=== PATIENT | female | born 1960 | race Caucasian/White ===

== ENCOUNTER 2025-07-07 14:00 | Outpatient (AMB) | payer BC, SELFPAY ==
--- OUTSIDE RECORDS SUMMARY | 2022-12-24 12:13 | XMS_ITS | Encounter Summary ---
Author Organization [facility] Address [address] [place] [phone] Phone Care Team Providers Care Roller Skate Repairer Name Role Phone Diego Dc MD Primary Care Provid er Encounter Details Date Type Department Care Team ([facility] st Contact Info) Description 12/24/2022 1:13 PM EDT Hospital Encounter [facility] Department of Neurology [address] [place] [address], [address] [place] [address] Gena Garza MD, PhD [address] [place] [id number] [email or web address] Social History Tobacco Use Types Packs/Day Years Used Date Smoking Tobacco: Never Smokeless Tobacco: Never Education Answer Date Recorded Are you interested in more education? Not on danielle e 11/18/2022 Are you concerned about learning? Not on file 11/18/2022 No 11/18/2022 No 11/18/2022 Digital Access Answer Date Recorded No 12/17/2022 No 12/17/2022 Reliable internet access at home? Not on file 12/17/2022 Device with a working camera? 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 2) Multiple clinical events of forgetting what she was doing, or not knowing what she was doing. One of these spells was associated with more frequent bursts of generalized spike-wave discharges around the time of event. Other events showed no epileptiform abnormalities, or only occasional epileptiform abnormalities that did not differ significantly from the background. 3) There were frequent brief arousals during sleep. No seizures were seen. Recording Start: 12/09/2022 4:43:31 PM Recording End: 12/11/2022 4:11:53 PM Exam Duration: 47 h 28 m Technical Details: Twenty-five (25) disposable electrodes were applied according to the standard 10-20 international measurement and placement protocol in person by an maintenance person for the purposes of recording long-term video EEG: (19) cephalic, (2) T1/T2 sub-temporal, (1) ground, (1) system reference, and (2) ECG. Data was recorded on a 24-channel Everpay EEG recording device with a sampling rate of 200 samples per second/per channel, at impedance levels less than 10 K Ohms. Once the exam was completed, the recording was halted, electrodes carefully removed, and data transferred. 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 Medications: lamotrigine Exam Details: The resting background was continuous and symmetric. Awake at best, there was a 40 uV, 10-11Hz posterior dominant rhythm with excellent anterior-posterior organization. Lambda waves were seen. Drowsiness was characterized by slow roving eye movements, attenuation of the posterior rhythm, a reduction in eye blink artifact, and diffuse slowing. Vertex waves and POSTS were seen. Stage 2 sleep was characterized by sleep spindles and K complexes. REM sleep was characterized by rapid phasic eye movements and sawtooth waves. There were frequent brief arousals during sleep. There were occasional, 1-7 second bursts of 3-4Hz generalized spike and polyspike-wave discharges. Often these were poorly formed. These were seen in both awake and asleep states, but most frequent during periods of transition from awake to asleep. These were also seen more frequently on the morning of the second day of recording. No seizures were seen. Patient events: Multiple events of forgot what I was doing or don't know what I'm doing were captured. These are described in more detail in the table below. Date/Time Type Typical Diary note Clinical note EEG description 12/09/2022 5:56:22 PM Diary Undetermined E1 no alarm button pressed, listed in diary as forgot to do something, walked away without drink no video Awake, no significant changes, muscle artifact noted. No epileptiform abnormalities seen. 12/09/2022 8:17:17 PM Diary Undetermined E2, no alarm pressed, listed in diary as sinus headache no video Awake, no significant changes, muscle artifact noted. No epileptiform abnormalities seen. 12/10/2022 9:37:13 AM Diary Yes E3 1 alarm is pressed 1 time, listed in diary as completely forgot what I was doing no video There were multiple frequent but brief (2-5 second) bursts of generalized spike wave discharges around the time of button press. Note that the spike-wave discharges were much more frequent during this period compared to background. 12/10/2022 11:41:45 AM Diary Undetermined E4 alarm pressed 1 time, no diary entry no video Awake, there was 1 brief (2-second) burst of generalized spike wave discharges, though this was not significantly different compared to background. 12/11/2022 11:07:13 AM Diary Yes E5 alarm pressed 1 time, listed in diary as don't know what I'm doing no video Awake, no significant changes in background. No epileptiform abnormalities seen. 12/11/2022 11:14:23 AM Diary Yes E6, alarm pressed 1 time, listed in diary as dizzy and out of body no video Awake, there were 2 brief (3-5 second) bursts of generalized spike wave discharges, though these occurred in the minute after the patient pushed the button, and were not not necessarily significantly different from background. EEG Clips 12/10/2022 8:42:54 AM generalized spike and wave discharges EKG: No significant dysrhythmia Gena Garza MD PhD [facility] Epilepsy Service Narrative 01/14/2023 8:38 PM EDT Table formatting from the original result was not included. Images from the original result were not included. 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 It is not the complete legal health record.[facility]
--- OUTSIDE RECORDS SUMMARY | 2022-12-24 12:13 | XMS_ITS | Encounter Summary ---
Author Organization [facility] Address [address] [place] [phone] Phone Care Team Providers Care Shook Machine Operator Name Role Phone Diego Dc MD Primary Care Provid er Encounter Details Date Type Department Care Team ([facility] st Contact Info) Description 12/24/2022 1:13 PM EDT Hospital Encounter [facility] Department of Neurology [address] [place] [address], [address] [place] [address] Gena Garza MD, PhD [address] [place] [phone] [email or web address] Social History Tobacco Use Types Packs/Day [...] Diagnosis Comments OUTSIDE EEG (WITH INTERPRETATION) Routine 12/09/2022 3:38 PM EDT 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 No seizures were seen. 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 Medications: Lamotrigine Exam Details: The resting background was continuous and symmetric. Awake at best, there was a 40 uV, 10-11Hz posterior dominant rhythm with excellent anterior-posterior organization. Drowsiness and sleep were not captured during this recording. There was a single 3.5-second burst of 3-4Hz generalized spike wave discharges. No seizures were seen. EKG: No significant dysrhythmia Gena Garza MD PhD 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 It is not the complete legal health record.[facility]
--- OUTSIDE RECORDS SUMMARY | 2024-05-21 09:30 | XMS_ITS ---
Author Organization [facility] Address [address] [facility] [place] [address] Care Team Providers Care Icing Coater Name Role Phone Diego Dc MD Primary Care Provider Vanna Real Unavailable [phone] Allergies Allergen (clinical drug ingredient) Drug/Non Drug Allergy documented on EMR Reaction Allergy Type Onset Date Status amoxicillin / clavulanate Augmentin Unknown Drug Allergy Active codeine Codeine Unknown Drug Allergy Active REASON FOR VISIT Last Visit PCP 12/2023 Medications Medication SIG (Take, Route, Frequency, Duration) Notes Start Date End Date Status Night Splint AFO - L1930 1 wear at rest; Duration: 30 days Active LaMICtal Active metFORMIN HCl 500 MG 1 tablet with a giancarlo l Orally Once a day Active Social History Tobacco Use: Social History Observation Description Date Details (start date - stop date) Never Smoker NA - NA Tobacco Use/Smoking Question Answer Notes Are you a: nonsmoker Additional Findings: Tobacco Non-User Current no n-smoker Alcohol Screen Question Answer Notes Did you have a drink containing alcohol in the p ast year? Yes Points 0 Interpretation Negative Tobacco use other than smoking: Question Answer Notes Are you an other tobacco user? No Encounters Encounter Location Date Provider Diagnosis [address] [place] [address] 05/21/2024 Vanna Clay Plan Of Treatment No Information Progress Notes * Mackenzie SWEENEYOB:[birth year] (64 yo F)Acc No.[id number]:05/21/2024 Patient: Sunni PATIÑO Provider: Alicia Clay DPM :1960 A ge:63 Y S ex:Female Date:05/21/2024 Address:[id number] Pcp:Diego Dc MD Subjective: * Chief Complaints: * 1 . Last Visit PCP 12/2023. * ROS: G eneral/Constitutional: Nausea d enies. V omiting d enies. H alla Thirst a dmits. L oss appetite d enies. C hills d enies. F atigue d enies.?Fever d enies. N ight Sweats d enies. U nexplained weight loss d enies. U nexplained weight gain d enies. H EENTM: Dentures d enies. D izziness d enies. G lasses/contacts a dmits. R etinopathy d enies. B lurred/double vision d enies. T MJ?denies. D ischarge/drainage d enies. I mplants d enies. S ore throat d enies. D ental implants d enies. H freddie of hearing d enies. D ifficulty chewing/swallowing/speaking d enies. N ose bleeds d enies. S ore mouth d enies. ? R espiratory: On Oxygen d enies. P neumonia/pleurisy d enies.?Bronchitis d enies. E mphysema d enies. C oughing d enies. C ough blood?denies. S hortness of breath d enies. W heezing d enies. C ardiovascular: Pacemaker d enies. M IN SCHOOL SUSPENSION AIDE d enies. W PW d enies. C HF d enies. H eart attack d enies. S eptal defect d enies. R apid beat d enies. C hest pain d enies. A trial Fib. d enies. M urmur/Palpitations d enies. G astrointestinal: Hemorrhoids d enies. S tomach/Abdominal pain d enies. D ark blood stool d enies. I rritable bowel a dmits. C onstipation a dmits. D iarrhea a dmits. H ematology: Swelling d enies. C lots d enies. V aricose Veins d enies. B ruising d enies. B leeding problem d enies. G enitourinary: Blood urine d enies. F requent/Painfu/urination/bladder control d enies. K idney stones d enies. I nfection (UTI) d enies. N ephropathy d enies. s ex trans dis (STD) d enies. P rostate d enies. M usculoskeletal: Hammertoes d enies. B unions d enies. B ack Pain a dmits. M uscle Cramps/ Resting a dmits. M uscle cramps / walking d enies.?Generalized aches and pains a dmits. W eakness d enies. I nteg.: Fraga d enies. S cars d enies. C orns/calluses?denies. I ngrown nails d enies. P ainful nails a dmits. O pen Sores d enies. R ashes d enies. N eurologic: Difficulty sleeping d enies. B rain disorder a dmits. N umbness d enies. B alance trouble d enies. C onfusion d enies. F ainting/blackouts d enies. T ingling d enies. T remors d enies. * Medical History: A nxiety, Osteoarthritis, Back,Hip,and Knee pain, Covid-19, Depression, Diabetic, Epilepsy, Fibromyalgia, Gall bladder problems, Sciatica, Sinusitis, Thyroid, Chicken pox, Joint implants/screws. * Surgical History: l eft knee replacement 09/2021, right knee replacement 05/2022, spinal stimulator 2014. * Family History: M other: alive, diagnosed with Family history of arthritis, Diabetic - NIDDM, Unspecified heart disease, Other specified conditions influencing health status. F ather: alive, diagnosed with Unspecified heart disease. S pouse: alive. M aternal Grand Mother: diagnosed with Diabetic - NIDDM. * Social History: T obacco Use: T obacco Use/Smoking A re you a: n onsmoker A dditional Findings: Tobacco Non-User C urrent non-smoker Tobacco use other than smoking A re you an other tobacco user? N o D rugs/Alcohol: D rugs H ave you used drugs other than those for medical reasons in the past 12 months? N o Alcohol Screen D id you have a drink containing alcohol in the past year? Y es P oints 0 I nterpretation N egative M iscellaneous: C affeine: yes. Children: yes, 3. Exercise: yes, walking, gardening/yard work, cooking. Marital status: . Occupation: [employer]. * Medications: T akinananda LaMICtal , Taking metFORMIN HCl 500 MG Tablet 1 tablet with a meal Orally Once a day , Taking Night Splint AFO - L1930 1 wear at rest , Medication List reviewed and reconciled with the patient * Allergies: A Devin vale. Objective: * Vitals: Assessment: Plan: * Treatment: * Images: * The named appointment provid er may or may not be the originator of this progress note, and it is not deemed complete until electronically signed by the appointment provider. Sign off status: Pending * Provider: Alicia Clay DPM Date: Generated for Matthew flores/Polo/Jessica on: 2024 08:24 PM EST
--- OUTSIDE RECORDS SUMMARY | 2024-06-11 05:30 | XMS_ITS ---
Author Organization [facility] Address [address] [place] [address] Care Team Providers Care Banana Carrier Name Role Phone Diego Dc MD Primary Care Provider Unava ilVanna Pastor [phone] REASON FOR VISIT seen sooner Encounters Encounter Location Date Provider Diagnosis [address] [place] [address] 06/11/2024 Vanna Clay Plan Of Treatment No Information Progress Notes * Mackenzie SWEENEYOB:[birth year] (64 yo F)Acc No.[id number]:06/11/2024 Patient: Sunni PATIÑO Provider: Marlene Clay DPM :1960 A ge:63 Y S ex:Female Date:06/11/2024 [address] [place] [place] Pcp:Diego Dc MD Subjective: * Chief Complaints: * 1 . Seen sooner. * Medical History: Objective: * Vitals: Assessment: Plan: * Treatment: * Images: * The named appointment provid er may or may not be the originator of this progress note, and it is not deemed complete until electronically signed by the appointment provider. Sign off status: Pending * Provider: Marlene Clay DPM Date: 08/11/2023 Generated for Ali sandra/Polo/eTransmitting on: 2024 08:24 PM EST
--- OUTSIDE RECORDS SUMMARY | 2025-03-04 09:45 | XMS_ITS ---
Author Organization [facility] Address [address] [facility] [address] Care Team Providers Care Corporate Compliance Officer Name Role Phone Diego Dc MD Primary Care Provider Unava ilable Vanna Clay Unavailable [phone] Encounters Encounter Location Date Provider Diagnosis [address] [place] [address] 03/04/2025 Vanna Clay Plan Of Treatment No Information Progress Notes * Mackenzie SWEENEYOB:[birth year] (64 yo F)Acc No.[id number]:03/04/2025 Progress Note Patient: Sunni PATIÑO Provider: Marlene Clay DPM :1960 A ge:64 Y S ex:Female Date:03/04/2025 Address[address] [place] Pcp:Diego Dc MD Subjective: * Chief Complaints: * * Medical History: Objective: * Vitals: Assessment: Plan: * Treatment: * Images: * The named appointment provid er may or may not be the originator of this progress note, and it is not deemed complete until electronically signed by the appointment provider. Sign off status: Pending * Provider: Marlene Clay DPM Date: 0 03/04/2025 Generated for Printi ng/Faxing/eTransmitting on: 1 2024 08:25 PM EST
[2025-07-07 14:49] VITALS: BMI 36.6
--- NOTE | 2025-07-07 14:49 | A.PHYSOV_ITS ---
Vital Signs 07/07/25 14:49 Height 5 ft 2 in Weight 200 lb BMI 36.6 Intake Visit Reasons: NPV ATI Ref-LBP Intake Note: Patient is a 64 year old female here today for a new patient office visit. Patient has been referred for lower back pain. Cinder Crane Operator Required: No Allergies amoxicillin (From Augmentin) Allergy (Unknown, Verified 07/07/25 14:52) Unknown clavulanic acid (From Augmentin) Allergy (Unknown, Verified 07/07/25 14:52) Unknown codeine Allergy (Unknown, Verified 07/07/25 14:52) Unknown HPI Comments Details: History of Present Illness The patient is a 64 year old female presenting for evaluation of worsening chronic low back pain with sciatica. She reports the onset of sciatic issues began in 2012 after the of her last child. While the symptoms were previously intermittent, they have recently become horrible, with a current pain level of 7-8/10. The patient has a spinal cord stimulator which was placed approximately 13 years ago in [place]. The stimulator battery was recently replaced, and the new device is MRI-compatible. She notes the stimulator helps, stating her pain is significantly worse when the battery dies, but its current efficacy is limited. She recalls receiving injections in her back prior to the stimulator placement. Past medical history is significant for bilateral total knee arthroplasties. She has had a prior CAT scan which she states showed a bad disc, but she has not had an MRI due to the old stimulator. She recently lost 30 pounds but feels her pain has worsened since the weight loss. 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 Patient did have CT scan of her lumbar spine ordered prior to having the battery changed in her spinal cord stimulator. This confirm moderate degenerative disc disease but is not a good way to look at the spinal cord, nerve root impingement or disc issues. Patient is requesting MRI of the lumbar spine. I reviewed the referring provider's no prior to consultation. Pain Description - Onset: The patient reports her sciatic issue began in 2012 after childbirth. - Location: Pain is primarily on the right side, starting in the lower back/buttock area. - Radiation: The pain radiates down the right leg, sometimes to the side or front of the leg. - Severity: Current pain is rated as a 7-8 out of 10. - Quality: She describes a sharp pain in her right buttock. - Exacerbating Factors: Pain is worsened by leaning backward and bending forward. - Associated Symptoms: She reports occasional numbness and a tingling sensation in the right leg that is different from the sensation produced by her spinal cord stimulator. Results - Imaging: The patient reports a prior CAT scan of her back showed a really bad disc. Review of Systems Narrative Review of Systems - Musculoskeletal: Reports chronic low back pain and right leg pain. - Neurological: Reports right-sided sciatica with pain radiating down her leg, accompanied by occasional numbness and tingling in the right leg. - Psychiatric: Reports feeling like crying due to pain severity. Denies claustrophobia. Physical Exam Exam Exam: Physical Exam - General: Patient appeared to be in distress from pain. - Musculoskeletal: Lumbar spine extension reproduces pain radiating down the leg. Lumbar spine flexion exacerbates back, hip, and leg pain. - Neurological: Straight leg raise test is positive on the right, reproducing back and buttock pain; the test is negative on the left. Motor strength is grossly 5/5 for ankle dorsiflexion and plantarflexion bilaterally. Sensation to light touch is intact in bilateral thighs. Patellar reflexes were assessed, with findings not specified. Vital Signs: BMI result Body Mass Index 36.6 Assessment & Plan Assessment & Plan (1) Lumbar radiculopathy: Code(s): M54.16 - Radiculopathy, lumbar region Category: Medical (2) Lumbar spondylosis: Code(s): M47.816 - Spondylosis without myelopathy or radiculopathy, lumbar region Category: Medical Plan Pain Management - Analgesia: The patient is using a spinal cord stimulator, which she finds partially effective. She reports her pain is a 7-8/10 currently and notes she is unable to move when the stimulator is not functioning. She is not currently taking oral pain medications. - Affect: She reports being very distressed by the pain, stating she feels like crying. - Activities of Daily Living: The pain is severe and has been ongoing since 2012, impacting her function. - Adverse Effects: She has not taken any pain medications for a while and did not report any adverse effects. She notes that cyclobenzaprine did not work for her in the past. - Aberrant Drug Related Behaviors: No aberrant drug-related behaviors were discussed. Plan Patient was informed and verbally consented to the use of an ambient scribe for clinic note documentation during this visit. 1. Chronic Low Back Pain With Right-Sided Sciatica The patient presents with worsening chronic low back pain and right-sided sciatica, which has been present since 2012. Her symptoms are significant despite the presence of a spinal cord stimulator. A prior CAT scan was insufficient for a complete evaluation of nerve or disc pathology. An MRI of the lumbar spine is necessary for a more detailed assessment, now that her new stimulator battery is MRI-compatible. An order for an MRI of the lumbar spine will be placed for the patient's preferred facility, [facility]. For symptomatic relief, tizanidine 4 mg will be prescribed for up to three times a day as needed. Ibuprofen 800 mg will also be prescribed for up to three times a day as needed with food. The patient will follow up in the office after the MRI is completed to review the results and discuss further treatment options. Discussion Notes I explained to the patient that while her previous CAT scan showed some issues, an MRI of her lumbar spine is the superior test to evaluate for nerve impingement, disc pathology, or spinal cord issues, which are likely contributing to her symptoms. Given her new spinal cord stimulator is MRI- compatible, I recommended proceeding with the imaging. I will order the MRI at her preferred location and instructed her to call our office if she has not heard from us within a week of the scan to ensure we obtain the report. For symptomatic management, I prescribed tizanidine 4 mg for muscle spasms, as she reported cyclobenzaprine was ineffective. I also prescribed ibuprofen 800 mg for pain and inflammation, advising her to take it with food and use both medications only as needed. We discussed her recent weight loss, and I encou raged her to continue, explaining that while the damage causing her chronic pain may already be done, maintaining a healthy weight is beneficial for her future health. We will have her return for a follow-up appointment after the MRI results are available to discuss a definitive treatment plan. Patient Instructions - An MRI of your lower back will be ordered. Please proceed with scheduling this scan at [facility], as you requested. - Remember to bring the card for your spinal cord stimulator to your MRI appointment. - If you have not heard from our office one week after your MRI is completed, please call us so we can track down the results. - A prescription for Tizanidine 4 mg has been sent to your pharmacy. You may take one pill up to three times a day as needed for muscle spasms. This medication may cause drowsiness, so take the first dose when you are home and do not have to drive. - A prescription for Ibuprofen 800 mg has also been sent. You may take one pill up to three times a day as needed for pain. Be sure to take this with food. - On days when you are feeling well, you do not need to take either of these medications. - Continue your efforts with weight loss, as it is beneficial for your long-term health. - We will have you return for a follow-up visit after your MRI to review the results and discuss the next steps. Orders: Orders MR lumbar spine wo con Today M51.16 - Intervertebral disc disorders with radiculopathy, lumbar region Medications: New tizanidine 4 mg PO TID PRN 90 caps 6RF muscle spasticity 30 days M47.816 - Spondylosis without myelopathy or radiculopathy, lumbar region, M54.16 - Radiculopathy, lumbar region ibuprofen 800 mg PO TID 90 tabs 6RF 30 days M47.816 - Spondylosis without myelopathy or radiculopathy, lumbar region, M54.16 - Radiculopathy, lumbar region Coding Level of Care Code Tele New Pt Level 4 (54770) Diagnoses Lumbar radiculopathy M54.16 Lumbar spondylosis M47.816
--- OUTSIDE RECORDS SUMMARY | 2025-07-07 20:25 | XMS_ITS | Encounter Summary ---
Author Organization Nichole Delgado [facility] Address [address] [place] [address] Care Team Providers Care Loading Unit Operator Crimping Name Role Phone Diego Dc MD Primary Care Provider +1- [phone] Encounter Details Date Type Department Care Team (Late st Contact Info) Description 07/01/2013 Clinical Conversion Encounter GENERAL CONVERSION Marsha Garcias RN Social History Tobacco Use Types Packs/Day Years Used Date Smoking Tobacco: Never Comments Unknown Sex and Gender Information Value Date Recorded Sex Assigned at Not on file Legal Sex Female 4:21 PM EST Gender Identity Not on file Sexual Orientation Not on file documented as of this encounter Miscellaneous Notes * Telephone Encounter - Marsha Garcias RN - 09/10/2014 9:35 AM EST [id number],LAURIE [facility] POSTOP TELEPHONE NOTE NEUROSURGERY 07/01/2013 Name: SUNNI SWEENEY #: [id number] : 1960 Visit ID: [id number] This is a telephone dictation made from a diary received on 07/01/2013 from Sunni Sweeney. DIAGNOSIS: Facet syndrome. PROCEDURE: Bilateral lumbar medial branch block, L3 through S1. PROCEDURE DATE: 06/28/2013. PROCEDURIST: Yomaira Hartley M.D. PROCEDURE LOCATION: [facility]. PROCEDURE RESULTS: Pre procedure pain: number 6 at rest, 8 with standing and walking. Post procedure: the patient was instructed to keep a pain diary, refrain from using pain medication and keep herself active. At 3:30 p.m., immediately postprocedure, pain number 2; 4:00 p.m., pain number 2; 4:30 p.m. and 5:00 p.m., pain number 3; 5:30 p.m. and 6:00 p.m., pain number 4; 6:30 p.m. and 7:00 p.m., pain number 5; 7:30 p.m., pain number 6; 8:00 p.m., pain number 9. The patient did some riding in the car, walking, and some food shopping. She went out to a restaurant to eat and did decorating her home. Percentage of pain relief: greater than or equal to 50% during the first 3 hours of the diary. PLAN: The patient is to return on the for her second lumbar medial branch block. Marsha Garcias RN [phone] AC:bernie J: [id number] / [id number] CC: THIS DOCUMENT WAS ELECTRONICALLY AUTHENTICATED BY Marsha Garcias RN ON 07/18/2013 09:37:52 documented in this encounter Plan of Treatment Not on file documented as of this encounter Visit Diagnoses Not on filedocumented in this encounter Care Teams Loading Unit Operator Crimping Relationship Specialty Start Date End Date Diego Dc MD PCP - General 06/02/14 documented as of this encounter
--- OUTSIDE RECORDS SUMMARY | 2025-07-07 20:25 | XMS_ITS | Encounter Summary ---
Author Organization Nichole Delgado [facility] Address [address] [place] [address] Care Team Providers Care Water Maintenance Supervisor Name Role Phone Diego Dc MD Primary Care Provider +1- [phone] Encounter Details Date Type Department Care Team (Late st Contact Info) Description 10/05/2013 Clinical Conversion Encounter BOB NEUROSURGERY [address] [place] [address] Cesar Ricardo Jr., DO [address] [place] [address] Social History Tobacco Use Types Packs/Day Years Used Date Smoking Tobacco: Never Comments Unknown Sex and Gender Information Value Date Recorded Sex Assigned at Not on file Legal Sex Female 4:21 PM EST Gender Identity Not on file Sexual Orientation Not on file documented as of this encounter Miscellaneous Notes * Op Note - Cesar Ricardo Jr., DO - 09/17/2014 10:10 PM EST [id number],LAURIE [facility] [place] [place] OPERATIVE REPORT NAME: SUNNI SWEENEY DATE: 10/05/2013 #: [id number] : 1960 VISIT ID: [id number] SECOND VISIT ID: PHYSICIAN: Cesar Ricardo DO CASE MANAGEMENT DIRECTOR: Radha Esqueda RN PRE-OP DIAGNOSIS: Lumbar Radiculopathy (724.4) Trochanteric Bursitis POST-OP DIAGNOSIS: Lumbar Radiculopathy (724.4) Trochanteric Bursitis PROCEDURE: Left L4-5 (82436) Transforaminal Epidural Steroid Injection, left trochanteric bursa injection, under fluoroscopic guidance. ANESTHESIA: Local anesthesia. INDICATIONS: Low back and left leg pain. Left lateral hip pain. She states MELISSA recreated all her typical pain pattern which is good prognostic sign. OPERATIVE PROCEDURE: The benefits, alternatives, and risks of the procedure including but not limited to bleeding, infection, nerve damage, and worsening of the pain were discussed with the patient. After all patient concerns were addressed, the patient signed an informed consent. The patient was placed prone and automated blood pressure cuff and pulse oximeter applied. The skin entry point(s) was thoroughly cleaned with Chlorhexidine and draped in usual sterile fashion. The skin and subcutaneous tissue was anesthetized with 1-mL of Lidocaine 1%. A 22-gauge, 7.0-inch spinal needle was inserted towards the six o'clock position of the respective pedicle(s) into the left L4-5 foramen using fluoroscopic AP and oblique views. There was negative aspiration for heme and CSF. Injection of 1-cc of Omnipaque 240 showed appropriate intra epidural spread pattern without intravascular uptake in live fluoroscopic AP view. A total mixture of Kenalog 80-mg and 1-cc of Lidocaine 1% was injected. A 22-gauge 5.0-inch needle was used to inject the left trochanteric bursa under fluoroscopic AP view. A total of Kenalog 40mg and 3cc of 1% Lidocaine injected. Postprocedure instruction was given as documented in nursing records. After careful observation, the patient was determined to be safe and was discharged from same day holding area. We will follow up with the patient by phone in one week to assess outcome and to direct medical care accordingly. ESTIMATED BLOOD LOSS: None. SPECIMENS: None. COMPLICATIONS: None. Cesar Ricardo Jr, MD [phone] JPS: J: [id number] CC: Diego Dc MD, <Primary Care Physician> THIS DOCUMENT WAS ELECTRONICALLY AUTHENTICATED BY Cesar Ricardo Jr, MD ON 10/05/2013 10:39:23 SUNNI SWEENEY # [id number] documented in this encounter Plan of Treatment Not on file documented as of this encounter Visit Diagnoses Not on filedocumented in this encounter Care Teams Water Maintenance Supervisor Relationship Specialty Start Date End Date Diego Dc MD PCP - General 06/02/14 documented as of this encounter
--- OUTSIDE RECORDS SUMMARY | 2025-07-07 20:25 | XMS_ITS | Encounter Summary ---
Author Organization Nichole Delgado [facility] Address [address] [place] [address] Care Team Providers Care User Support Analyst Supervisor Name Role Phone Diego Dc MD Primary Care Provider +1- [phone] Encounter Details Date Type Department Care Team (Late st Contact Info) Description 10/17/2013 Clinical Conversion Encounter GENERAL CONVERSION Marsha Garcias [...] Telephone Encounter - Marsha Garcias RN - 09/18/2014 5:42 AM EST [id number],LAURIE [facility] TELEPHONE NOTE NEUROSURGERY 10/22/2013 Name: SUNNI SWEENEY #: [id number] : 1960 Visit ID: [id number] DIAGNOSES: 1. Lumbar radiculopathy. 2. Trochanteric bursitis. PROCEDURES: Left-sided lumbar transforaminal epidural steroid injection at L4-5 and left-sided trochanteric bursa injection. PROCEDURE DATE: 10/05/2013. PROCEDURIST: Cesar Ricardo M.D. PROCEDURE LOCATION: [facility]. PROCEDURE RESULTS: Percentage of overall improvement: only 40%, and she states that the symptoms come and go. Some days she does have a lot of pain and other days it is minimal. The patient states on the day of the procedure for the first couple of hours after the procedure, she really had no symptoms, that she felt good, and then the numbing medicine seemed to wear off and her symptoms did return. Numbness and weakness in the legs: The patient does state that her leg at times does feel weak. It feels hot. It is a sensation that starts in the hip and does radiate laterally down the leg into the calf. Injection site healed. Bowel and bladder accidents denied. PLAN: The patient would like to contact Jemal Alfonso NP, to discuss further her hip symptoms. She is also now starting to experience right hip symptoms as well over the past week. She may well need to have x-rays and follow up with Orthopedics according to Jemal Alfonso's last note from September 24. Also, she wants to discuss with him further her leg symptoms and how she should best proceed, whether she needs a clinic visit with him. The patient was satisfied with our discussion. She does have our contact information in the nurse's office if she has any further questions or concerns. Marsha Garcias RN [phone] AC:bernie J: [id number] / [id number] CC: MD Cesar Navarrete Jr, MD David Melzack, RN [employer]CHIT[employer] THIS DOCUMENT WAS ELECTRONICALLY AUTHENTICATED BY Marsha Garcias RN ON 10/28/2013 13:48:08 * Telephone Encounter - Marsha Garcias RN - 09/17/2014 10:10 PM EST [id number] [facility] POSTOP TELEPHONE NOTE NEUROSURGERY 10/17/2013 Name: SUNNI SWEENEY #: [id number] : 1960 Visit ID: [id number] DIAGNOSES: Lumbar radiculopathy, trochanteric bursitis. PROCEDURE: Left-sided greater trochanteric bursa injection and a left-sided lumbar transforaminal epidural steroid injection at L4-L5. PROCEDURE DATE: 10/05/2013. PROCEDURIST: Cesar Ricardo M.D. PROCEDURE LOCATION: [facility]. PROCEDURE RESULTS: The patient called and left a message on the nursing line stating that she still had some pain, but she was about 40% improved in her symptoms, specifically at the L4-L5 level. I have attempted contacting her today; however, she was not available. I did emphasize the need to follow through on a call, so that we can set up a plan. Please give us a call and maybe provide us a better time when we can make contact and we would try to accommodate that. I did leave my contact information. Marsha Garcias RN [phone] AC:bernie J: [id number] / [id number] CC: THIS DOCUMENT WAS ELECTRONICALLY AUTHENTICATED BY Marsha Garcias RN ON 10/28/2013 13:28:27 documented in this encounter Plan of Treatment Not on file documented as of this encounter Visit Diagnoses Not on filedocumented in this encounter Care Teams User Support Analyst Supervisor Relationship Specialty Start Date End Date Diego Dc MD PCP - General 06/02/14 documented as of this encounter
--- OUTSIDE RECORDS SUMMARY | 2025-07-07 20:25 | XMS_ITS | Encounter Summary ---
Author Organization [facility] Address [address] [place] [address] Phone Care Team Providers Care Blade Changer Name Role Phone Diego Dc MD Primary Care Provid er Encounter Details Date Type Department Care Team (Late st Contact Info) Description 11/17/2023 Transcribe Orders Virtual Department [address] [place] [address] Gunjan Tavares, FIELD SCOUT [address] [place] [address] Social History Tobacco Use Types Packs/Day Years [...] on filedocumented in this encounter Care Teams Blade Changer Relationship Specialty Start Date End Date Diego Dc MD [address] [place] [address] PCP - General Pediatrics 03/12/19 documented as of this encounter Additional Source Comments The information contained in this document represents components of the legal health record. It is not the complete legal health record.[facility]
--- OUTSIDE RECORDS SUMMARY | 2025-07-07 20:25 | XMS_ITS | Encounter Summary ---
Author Organization [facility] Address [address] [place] [address] Phone Care Team Providers Care Flotation Tender Name Role Phone Diego Dc MD Primary Care Provid er Encounter Details Date Type Department Care Team (Late st Contact Info) Description 05/14/2019 Procedure [facility] Imaging [address] [place] [address] Social History Tobacco Use Types Packs/Day Years Used Date Smoking Tobacco: Never Assessed Comments Unknown Sex and Gender Information Value [...] on filedocumented in this encounter Care Teams Flotation Tender Relationship Specialty Start Date End Date Diego Dc MD [address] [place] [address] PCP - General Pediatrics 03/12/19 documented as of this encounter Additional Source Comments The information contained in this document represents components of the legal health record. It is not the complete legal health record.[facility]
--- OUTSIDE RECORDS SUMMARY | 2025-07-07 20:25 | XMS_ITS | Encounter Summary ---
Author Organization [facility] Address [address] [place] [address] Phone Care Team Providers Care Topline Beading Machine Tender Name Role Phone Diego Dc MD Primary Care Provid er Reason for Referral * Consultation (Elective) - Closed Specialty Diagnoses / Procedures Referred By Contac t Referred To Contact Neurology Diagnoses Cognitive dysfunction System, Provider Not In, [facility] [employer] [address] Phone: tel: Referral ID Status Reason Start Date Expiration Date Visits Re quested Visits Authorized [id number] Closed 04/11/2019 04/11/2020 1 1 Encounter Details Date Type Department Care Team (Late st Contact Info) Description 04/11/2019 Transcribe Orders [facility] Department of Neurology [address] [place] [address], [address], [address] [place] [address] System, Provider Not In, [facility] [employer] [address] [place] [address] Cognitive dysfunction (Primary Dx) Social History Tobacco Use Types Packs/Day Years Used Date Smoking Tobacco: Never Assessed Comments Unknown Sex and Gender Information Value Date Recorded Sex Assigned at Female 03/12/2019 2:05 PM EDT Legal Sex Female 9:45 PM EDT Gender Identity Female 03/12/2019 2:05 PM EDT Sexual Orientation Straight 03/12/2019 2: 05 PM EDT documented as of this encounter Plan of Treatment Scheduled Referrals Name Type Priority Associated Diagnoses Orde r Schedule Ambulatory referral to [facility] Neurology Outpatient Referral Routine Cognitive dysfunction Ordered: 04/11/2019 documented as of this encounter Visit Diagnoses Diagnosis Cognitive dysfunction- Primary Unspecified persistent mental disorders due to conditions classified elsewhere documented in this encounter Care Teams Topline Beading Machine Tender Relationship Specialty Start Date End Date Diego Dc MD [address] [place] [phone] PCP - General Pediatrics 03/12/19 documented as of this encounter Additional Source Comments The information contained in this document represents components of the legal health record. It is not the complete legal health record.[facility]
--- OUTSIDE RECORDS SUMMARY | 2025-07-07 20:25 | XMS_ITS | Encounter Summary ---
Author Organization Nichole Delgado [facility] Address [address] [place] [address] Care Team Providers Care Public Health Technician Name Role Phone Diego Dc MD Primary Care Provider +1- [phone] Encounter Details Date Type Department Care Team (Late st Contact Info) Description 07/09/2013 Clinical Conversion Encounter GENERAL CONVERSION Marsha Garcias [...] Garcias RN - 09/10/2014 9:35 AM EST [id number],LAURIE [facility] POSTOP TELEPHONE NOTE NEUROSURGERY 07/09/2013 Name: SUNNI SWEENEY #: [id number] : 1960 Visit ID: [id number] DIAGNOSIS: Facet syndrome. PROCEDURE: Bilateral lumbar medial branch block, L3 through S1. PROCEDURE DATE: 07/05/2013 PROCEDURIST: Yomaira Hartley MD PROCEDURE LOCATION: [facility]. PROCEDURE RESULTS: The patient's pre-procedure pain number: at rest 5 with activity 9-10. Post-procedure: the patient was instructed to keep a pain diary, refrain from using pain medication and keep herself active. She did quite a bit of shopping, riding in the car, walking around at a rest stop on the way home, prepared dinner and did more shopping. Her pain number initially post-procedure at 2:45 was 1. It remained at 1 until 4:00 p.m. It was 2, at 4:30; pain number 3, at 5:00 p.m.; pain number 4, between 5:30 and 6:30; pain number 5; and at 7 p.m., pain number 6. Percentage of pain relief equal to or greater than 50% relief: yes. Injection site healed. PLAN: The patient will return on July 12 for her bilateral radiofrequency denervation. She has been provided a sedative. The patient does have our contact information in the nurse's office if she has any further questions or concerns. Marsha Garcias RN [phone] AC:MARKIE J: [id number] / [id number] CC: THIS DOCUMENT WAS ELECTRONICALLY AUTHENTICATED BY Marsha Garcias RN ON 07/18/2013 10:55:09 documented in this encounter Plan of Treatment Not on file documented as of this encounter Visit Diagnoses Not on filedocumented in this encounter Care Teams Public Health Technician Relationship Specialty Start Date End Date Diego Dc MD PCP - General 06/02/14 documented as of this encounter
--- OUTSIDE RECORDS SUMMARY | 2025-07-07 20:25 | XMS_ITS | Patient Health Record ---
Author Organization [facility] Address [address] [place] [address] Care Team Providers Care Security Guard Name Role Phone Diego Dc MD Primary Care Provider Unava ilable Black, Vanna Unavailable [phone] Allergies Allergen (clinical drug ingredient) Drug/Non Drug Allergy documented on EMR Reaction Allergy Type Onset Date Status amoxicillin / clavulanate Augmentin Unknown Drug Allergy Active codeine Codeine Unknown Drug Allergy Active Reason For Referral No Information Medications Medication SIG (Take, Route, Frequency, Duration) Notes Start Date End Date Status metFORMIN HCl 500 MG 1 tablet with a giancarlo l Orally Once a day Active LaMICtal Active Night Splint AFO - L1930 1 wear at rest; Duration: 30 days Active Immunizations Vaccine Route Administration Date Status Comme nts Influenza Unknown 05/11/2023 Administered Social History Tobacco Use: Social History Observation Description Date Details (start date - stop date) Never Smoker NA - NA Tobacco use other than smoking: Question Answer Notes Are you an other tobacco user? No Tobacco Control (Standard) Question Answer Notes Tobacco use: Nonsmoker Additional Findings: Tobacco non-user Current no nsmoker AUDIT-C (Standard) Question Answer Notes Did you have a drink containing alcohol in the p ast year? No Points 0 Interpretation Negative Problems Problem Type SNOMED Code ICD Code Onset Dates Problem Status W/U Status Risk Notes Problem Acquired hammer toe of right foot (401894186562649 5) Other hammer toe(s) (acquired), right foot (M20.41) Active confirmed Decision for Surgery (4),Resistant to previous conservative treatment Problem Acquired hammer toe of left foot (573320169750666 3) Other hammer toe(s) (acquired), left foot (M20.42) Active confirmed Problem Type II diabetes mellitus without complication (907379496) Type 2 diabetes mellitus without complications (E11.9) Active confirmed Problem Acquired hammer toe of right foot (294390390731081 5) Hammer toe of right foot (M20.41) Active confirmed Improvement Problem Acquired hammer toe of left foot (754718249003959 3) Hammer toe of left foot (M20.42) Active confirmed Improvement Problem Spasm (67518033) Extensor tendon tightness, contracture (M62.40) Active confirmed Improvement Problem Localized, primary osteoarthritis of the ankle and/or foot (257038807) Arthritis of joint of lesser toe, left (M19.072) Active confirmed Problem Localized, primary osteoarthritis of the ankle and/or foot (398024693) Arthritis of joint of lesser toe, right (M19.071) Active confirmed Problem Plantar fascial fibromatosis (88904479) Plantar fasciitis, bilateral (M72.2) Active confirmed Vital Signs Blood pressure diastolic 70 mm Hg 09/04/2024 Height 5ft 2in in 09/04/2024 Blood pressure systolic 122 mm Hg 09/04/2024 Weight 220 lbs 09/04/2024 BMI 40.23 kg/m2 09/04/2024 Procedures Procedure Date Ordered Date Performed Result Body Sit e 36122 - Tenotomy, open flexor 08/28/2024 N/A Encounters Encounter Location Date Provider Diagnosis [address] [address] 08/28/2024 Vanna Black [facility] toe [facility] M20.42 [facility] [address] 09/04/2024 Vanna Black Hammer toe of left foot M20.[address] [address] 09/05/2024 [facility]anna Clay [facility] [address] [address] 01/13/2025 Vanna Clay Assessments Encounter Date Diagnosis (ICD Code) Assessment Notes Treatment Notes Treatment Clinical Notes Section Notes 08/28/2024 Hammer toe of left foot (ICD-10 - M20.42) 09/04/2024 Hammer toe of left foot (ICD-10 - M20.42) Improvement Plan Of Treatment Pending Test Test Name Order Date 50240 - Tenotomy, open flexor 05/28/2024 23085 - Tenotomy, open flexor 08/28/2024 Insurance Providers Payer Name Payer Address Payer Phone Subscriber Number Group Number Insured Name Patient Relationship to Insured Coverage Start Date Coverage End Date [facility] [address] [place] [address] [id number] Madelyn Barksdale Spouse - patient is the spouse of the insured Medical (General) History Medical History History ICD Code Anxiety osteoarthritis Back,Hip,and Knee pain covid-19 Depression Diabetic Epilepsy Fibromyalgia Gall bladder problems Sciatica sinusitis thyroid Chicken pox Joint implants/screws Surgical History Surgery Date(Month/Year) left knee replacement 09/2021 right knee replacement 05/2022 spinal stimulator 2014
--- OUTSIDE RECORDS SUMMARY | 2025-07-07 20:25 | XMS_ITS | Encounter Summary ---
Author Organization Nichole Delgado [facility] Address [address] [place] [address] Care Team Providers Care [employer] Operations Name Role Phone Diego Dc MD Primary Care Provider +1- [phone] Encounter Details Date Type Department Care Team (Late st Contact Info) Description 01/15/2014 Clinical Conversion Encounter Department of Orthopedic Surgery ([address] [place] [address] [address] [place] [address], [address]nd [place] [address] Garima Bose PA [address] [place] [address] Social History Tobacco Use Types Packs/Day Years Used Date Smoking Tobacco: Never Comments Unknown Sex and Gender Information Value Date Recorded Sex Assigned at Not on file Legal Sex Female 4:21 PM EST Gender Identity Not on file Sexual Orientation Not on file documented as of this encounter Progress Notes * MELVA Connell - 09/18/2014 1:49 PM EST [id number],LAURIE [place], [place]. ORTHOPAEDIC SURGERY 01/15/2014 Name: SUNNI SWEENEY #: [id number] : 1960 Visit ID: [id number] Second Visit ID: [id number] HISTORY OF PRESENT ILLNESS: Ms. Sweeney is a very pleasant 53-year-old female who was seen by Dr. Vergara and Justin on November 29 with a chief complaint of chronic bilateral hip pain, left greater than right. We sent her for a left hip joint injection under fluoroscopy, which was done on December 10. The patient comes in today and reports that she felt 30% better after the injection. The groin pain was resolved for a few days, but she is continuing to have low back pain, lateral hip pain, and leg pain. She is also known to Dr. Dudley and John Alfonso NP in Neurosurgery. She has been diagnosed with degenerative disk disease, spondylosis, facet arthropathy at L4-L5 and L5-S1. She has undergone epidural steroid injections, which have helped with her back pain, but not with her groin pain. She also underwent a left hip bursa cortisone injection on October 05, which did not help at all. She obviously has problems with her hips and with her back. She denies any numbness or tingling in her legs. No weakness in her legs, but the low back pain radiates down both of her legs to her feet. She takes ibuprofen, which does not help much. She does feel that this is getting worse. PHYSICAL EXAMINATION: General: Well-nourished, well-developed, pleasant 53-year-old female ambulating without difficulty, in no acute distress. Musculoskeletal: She has positive straight leg raises bilaterally at about 70 degrees with pain localized to her lower back and posterior thigh. She has good range motion of her hips, but she does experience some pain in the groin with internal and external rotation. She is tender to palpation over the greater trochanter of both hips. She has some weakness with dorsiflexion of both feet. Lower extremity sensation is intact. 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 However, most of her pain seems to be coming from her back as the intra-articular hip cortisone injection only resolved her groin pain, did not resolve her low back, buttock, and lateral hip or leg pain. PLAN: I recommended that she go back to see Dr. Dudley for further evaluation of her chronic low back pain with lower extremity radiculopathy symptoms. She was also advised to let us know if her groin pain progresses, as the groin pain is coming from her hip joint. Garima Bose PA-C [phone] JULIO:bernie J: [id number] / [id number] CC: Andrés Vergara MD, <Referring> Diego Dc MD, <Second referring Dr Name> THIS DOCUMENT WAS ELECTRONICALLY AUTHENTICATED BY Garima Bose PA-C ON 01/17/2014 11:55:58 documented in this encounter Plan of Treatment Not on file documented as of this encounter Visit Diagnoses Not on filedocumented in this encounter Care Teams S[employer] E[employer] Operations Relationship Specialty Start Date End Date Diego Dc MD PCP - General 06/02/14 documented as of this encounter
--- OUTSIDE RECORDS SUMMARY | 2025-07-07 20:25 | XMS_ITS | Clinical Summary ---
Author Organization [employer] [facility] Address [address] [facility] [place] [address] Care Team Providers Care Dub Room Engineer Name Role Phone Diego Dc MD Primary Care Provid er Allergies Active Allergy Reactions Criticality Noted Date Comments Amoxicillin-Pot Clavulanate GI Intolerance 07/24 Codeine Hives 08/11/2016 Nystatin Anaphylaxis High 08/11/2016 Medications albuterol (VENTOLIN HFA) 90 mcg/actuation inhaler 3 Active busPIRone (BUSPAR) 15 MG tablet 0 Active cholecalciferol , vitamin D3, 50 mcg (2,000 unit) tab 3 Active divalproex (DEPAKOTE) 500 MG 24 hr tablet Take 2 tablets (1,000 mg total) by mouth 0 Active DULoxetine (CYMBALTA) 60 MG capsule TAKE 2 CAPSULES AT BEDTIME. 3 Active fluticasone propionate (FLONASE) 50 mcg/actuation nasal spray 3 Active hydrOXYzine (ATARAX) 25 MG tablet 0 Active lamoTRIgine (LaMICtal) 100 MG tablet 0 Active levothyroxine (SYNTHROID) 137 MCG tablet 0 Active meloxicam (MOBIC) 7.5 MG tablet 0 Active montelukast (SINGULAIR) 10 mg tablet 0 Active venlafaxine (EFFEXOR) 75 MG tablet Take 3 tablets (225 mg total) by mouth Active aspirin 325 MG tablet Take 1 tablet (325 mg total) by mouth 2 Active atorvastatin (LIPITOR) 20 MG tablet TAKE 1 TABLET BY MOUTH EVERY DAY 3 Active atorvastatin (LIPITOR) 40 MG tablet 3 Active celecoxib (CeleBREX) 200 MG capsule Take 1 capsule (200 mg total) by mouth 2 Active docusate sodium (COLACE) 100 MG capsule Take 1 capsule (100 mg total) by mouth 2 Active ondansetron (ZOFRAN) 4 MG tablet Zofran Take 1 tablet (oral) 2 times per day PRN - Nausea for 3 days [id number] tablet 2 times per day oral 3 days suspended 4 mg 1 Active pantoprazole (PROTONIX) 40 MG tablet Take 1 tablet (40 mg total) by mouth 2 Active hydrOXYzine (ATARAX) 25 MG tablet Take 1 tablet (25 mg total) by mouth 2 Active lamoTRIgine (LaMICtal) 100 MG tablet Take 1 tablet (100 mg total) by mouth 2 Active meloxicam (MOBIC) 7.5 MG tablet Take 1 tablet (7.5 mg total) by mouth 2 Active montelukast sodium (SINGULAIR ORAL) Take 10 mg by mouth 6 Active venlafaxine (EFFEXOR-XR) 37.5 MG 24 hr capsule Take 1 capsule (37.5 mg total) by mouth 2 Active venlafaxine (EFFEXOR-XR) 37.5 MG 24 hr capsule 2 Active Social History Tobacco Use Types Packs/Day Years Used Date Smoking Tobacco: Never Smokeless Tobacco: Never Tobacco Cessation:Counseling Given: Not Answered Comments No Sex and Gender Information Value Date Recorded Sex Assigned at Not on file Legal Sex Female 11:14 AM EST Gender Identity Not on file Sexual Orientation Not on file Last Filed Vital Signs Vital Sign Reading Time Taken Comments Blood Pressure 114/72 10/21/2022 11:08 AM EDT Pulse 92 10/21/2022 11:08 AM EDT Temperature 37.1 C (98.7 F) 10/21/2022 11:08 AM EDT Respiratory Rate 20 10/21/2022 11:08 AM EDT Oxygen Saturation 96% 10/21/2022 11:08 AM EDT Inhaled Oxygen Concentration - - Weight 113 kg (250 lb) 06/28/2020 11:19 AM EST Height 157.5 cm (5' 2 ) 06/28/2020 11:19 AM EST Body Mass Index 45.73 06/28/2020 11:19 AM EST Plan of Treatment Health Maintenance Due Date Last Done Comments Colorectal Cancer: COLONOSCO PY Screening every 10 yrs (or Modifier) 1960 Depression: Screening Annual ly using PHQ-2/9 in Adults 18 yrs or above (or HM Modifier)([facility]) 1980 Hepatitis C Virus Infection in Adolescents and Adults: Screening (or Modifier) ([facility]) 1980 NAHUM Screening: Once using ST OP-BANG Questionnaire for Adults with Conditions or high BMI([facility]) 1980 SDOH Screening Reminder: Sanjana hahn for all adults ([facility]) 1980 Tobacco Smoking Cessation: i n Adults excluding Women: Behavioral and Pharmacotherapy Interventions ([facility]) 1980 DTaP/Tdap/Td Vaccines ([facility]) (1 - Tdap) 1981 Cervical Cancer Screenin 1-65 yrs of age (or Modifier) 1983 Cervical Cancer Screening: P ap every 3 yrs pts age 21-65 1983 Cervical Cancer: Pap Screeni ng with Modifier timing ([facility]) 1983 Cervical Cancer: hrHPV alone or with cotesting Pap for Pts 30-65yrs screening every 5yrs ([facility]) 1983 Colorectal Cancer Screening 45 -75 Yrs (or HM Modifier) 2007 Colorectal Cancer: FLEXIBLE SIGMOIDOSCOPY Screening every 5 yrs 2007 Colorectal Cancer: Fecal Imm unochemical Test (FIT) Annually [facility] 2007 Colorectal Cancer: High-sens itivity gFOBT Screening Annually [facility] 2007 Colorectal Cancer: Stool Col oguard Screening every 3 yrs 2007 Colorectal Cancer:CT Colonog garry Screening every 5 yrs 2007 Breast Cancer: Screening Sanjana ualljose age 50-74 yrs (or HM Modifier)([facility]) 2012 Pneumococcal Vaccination Scr eening: Patients 50+ yrs of age ([facility]) (2 of 2 - PCV) 2012 04/28/2009 Zoster/Shingles Vaccine Seri es Screening: Adults aged 18+ yrs (or HM Modifiers)([facility]) (1 of 2) 2012 Flu Vaccination: Yearly for ages 18mos through 64 years (or Modifier)([facility]) 02/21/2025 COVID-19 Vaccine Screening: Initial Series and Booster Status ([facility]) ( - 2024- season) 2025 RSV Vaccines (1 - 1-dose 75+ series) 2037 Pneumococcal Vaccination Scr eening: Pts 0-19 & 19-49 yrs of age ([facility]) Discontinued 04/28/2009 Medical Devices Not on file Insurance [facility] Care Teams Dub Room Engineer Relationship Specialty Start Date End Date Diego Dc MD [address] [place] [phone] PCP - General Internal Medicine 08/11/16
--- OUTSIDE RECORDS SUMMARY | 2025-07-07 20:25 | XMS_ITS | Encounter Summary ---
Author Organization Nichole Delgado [facility] Address [address] [place] [address] Care Team Providers Care Glass Bulb Silverer Name Role Phone Diego Dc MD Primary Care Provider +1- [phone] Encounter Details Date Type Department Care Team (Late st Contact Info) Description 11/29/2013 Clinical Conversion Encounter Department of Orthopedic Surgery ([address] [place] [address] [address] [place] [address], [address] [place] [address] Garima Bose PA [address] [place] [address] Social History Tobacco Use Types Packs/Day Years Used Date Smoking Tobacco: Never Comments Unknown Sex and Gender Information Value Date Recorded Sex Assigned at Not on file Legal Sex Female 4:21 PM EST Gender Identity Not on file Sexual Orientation Not on file documented as of this encounter Progress Notes * MELVA Connell - 09/18/2014 9:19 AM EST [id number],LAURIE [place], [place]. ORTHOPAEDIC SURGERY 11/29/2013 Name: SUNNI SWEENEY #: [id number] : 1960 Visit ID: [id number] Second Visit ID: [id number] IDENTIFICATION: A 53-year-old female presents to the orthopaedic clinic in consultation to Dr. Andrés Vergara by Dr. Sandra Dudley for the evaluation of bilateral hip pain. CHIEF COMPLAINT: Bilateral hip pain, left greater than right. HISTORY OF PRESENT ILLNESS: Ms. Sweeney is a very pleasant 53-year-old female who has had pain in both hips for many years. She feels that her pain is getting worse. She also has problems with her back. She is known to the neurosurgery department, diagnosed with degenerative disk disease, spondylosis, facet arthropathy, L4-L5 and L5-S1. She has undergone epidural steroid injections, which have helped with her back pain, but not her hip pain. She also underwent a left hip bursa cortisone injection on October 05. The left hip bursa cortisone injection done on October 05 did not help at all with her hip pain. She localizes her pain to the lateral aspect of her hips as well as more recently, she has developed groin pain in both hips. This pain can radiate down the anterior thigh and lateral thigh. Also, it can radiate down to the top of her foot. She obviously has a component of both hip and back pain. She takes ibuprofen and Tylenol, which does not help much. She denies any weakness in her legs. No giving way symptoms. She does complain of some occasional numbness and tingling in her legs. PAST MEDICAL HISTORY: Significant for epilepsy, hypothyroidism, seasonal allergies, and chronic low back pain. PAST SURGICAL HISTORY: Cholecystectomy, tonsillectomy, and uterine ablation. MEDICATIONS: Cymbalta, diazepam, Flonase, Lamictal, ProAir inhaler, Synthroid, vitamin B12, vitamin D, ibuprofen and Tylenol as needed for pain. ALLERGIES: AUGMENTIN, CODEINE, NYSTATIN. SOCIAL HISTORY: The patient is , lives with her and 2 children. She has 3 grown children. She denies smoking. She drinks alcohol occasionally. 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 FAMILY HISTORY: Noncontributory. REVIEW OF SYSTEMS: All systems are negative. PHYSICAL EXAMINATION: General: A well-nourished, well-developed, pleasant 53-year-old female, ambulating without difficulty, in no acute distress. Height 5 feet 2 inches, weight 200 pounds. Musculoskeletal: Negative straight leg raises bilaterally. Bilateral hips are slightly tender to palpation over the greater trochanter. Range of motion, flexion to 90 degrees, internal rotation to 20 degrees, and external rotation to 35 degrees. She has a positive impingement arc on the left with with pain localized to the lateral aspect of hip. Lower extremity muscle strength 5/5 bilaterally. The patient is able to dorsiflex and plantarflex bilateral ankles with strength 5/5. DIAGNOSTIC DATA: X-rays of her left hip from today show a deep socket, coax profunda, a preserved joint space, mild loss of offset seen on lateral view. No acute abnormalities. IMPRESSION: 53-year-old female with chronic bilateral hip pain, left greater than right. PLAN: 1. She will continue to take ibuprofen as needed for pain if she is able to tolerate this medication. 2. We will send her for a left hip joint injection under fluoroscopy with 80 mg of Kenalog and 0.2% ropivacaine to see if this helps to alleviate her hip pain. 3. She will give us a call about a week after the injection to let us know how her hip is feeling. If the injection does not help, not even temporally, we know that her pain is not coming from her hip and probably coming from her back. Gariam Bose PA-C [phone] KMAlejandro:bernie J: [id number] / [id number] CC: Sandra Dudley MD, <Referring> Diego Dc MD, <Second referring Dr Name> THIS DOCUMENT WAS ELECTRONICALLY AUTHENTICATED BY Garima Bose PA-C ON 12/02/2013 07:43:15 documented in this encounter Plan of Treatment Not on file documented as of this encounter Visit Diagnoses Not on filedocumented in this encounter Care Teams Glass Bulb Silverer Relationship Specialty Start Date End Date Diego Dc MD PCP - General 06/02/14 documented as of this encounter
--- OUTSIDE RECORDS SUMMARY | 2025-07-07 20:25 | XMS_ITS | Encounter Summary ---
Author Organization Nichole Rolando [facility] Address [address] [place] [address] Care Team Providers Care Director Of Dementia Operations Name Role Phone Diego Dc MD Primary Care Provider +1- [phone] Encounter Details Date Type Department Care Team (Late st Contact Info) Description 06/18/2013 Clinical Conversion Encounter Department of Neurosurgery [address] [place] [address] Sandra Dudley MD [address] [place] [address] Social History Tobacco Use Types Packs/Day Years Used Date Smoking Tobacco: Never Comments Unknown Sex and Gender Information Value Date Recorded Sex Assigned at Not on file Legal Sex Female 4:21 PM EST Gender Identity Not on file Sexual Orientation Not on file documented as of this encounter Progress Notes * Sandra Dudley MD - 09/09/2014 9:21 PM EST [id number],LAURIE [place], [place]. NEUROSURGERY 06/18/2013 Name: SUNNI SWEENEY #: [id number] : 1960 Visit ID: [id number] Second Visit ID: [id number] HISTORY OF PRESENT ILLNESS: Sunni Dixon is a 52-year-old woman seen in consultation at the request of Dr. Dc for evaluation of back pain. She describes symptoms beginning in 2001. She has pain that spreads across the low back. It is worse on the left than the right. A component of pain extends down the legs. On the right side, it extends down to the mid thigh. On the left, it extends down into the inner aspect of the foot; 85% of her pain is in the back with 15% in the legs. The back pain has been quite debilitating. She has tried physical therapy. She has had a variety of injections. She is frustrated at her lack of progress. PAST MEDICAL HISTORY: Notable for epilepsy and fibromyalgia, status post cholecystectomy. MEDICATIONS: Include Celebrex, Cymbalta, Flonase, Lamictal, morphine extended release, ProAir, Synthroid, vitamin B12, and vitamin D. REVIEW OF SYSTEMS: Negative for recent fevers, chills, chest pains, or palpitations. PHYSICAL EXAMINATION: Hip flexors are full strength. Knee extension is full strength. Ankle dorsi and plantar flexion are grossly full strength. Light touch sensation is grossly well-preserved. IMAGING: I reviewed the recent lumbar MRI. There is spondylosis with degenerative changes seen at several levels. There is evidence for facet arthropathy at L4-L5 and L5-S1. There is a grade 1 degenerative listhesis at L4-L5. There is no obvious neural compression. ASSESSMENT AND PLAN: I explained the imaging findings in detail. I explained that her symptoms likely stem from facet arthropathy. As such, I advised that she proceed with lumbar facet blocks and possibly radiofrequency ablation. Hopefully, her pain can be improved allowing her to be more active and to exercise and focus on core strength and weight loss. This would likely yield the most improvement over the long run. She seems satisfied with the discussion and agrees with the plan. I will arrange for her to be seen in the spine center for diagnostic facet blocks. Sandra Dudley MD [phone] SNM:bernie J: [id number] / [id number] CC: Diego Dc MD, <Second referring Dr Name> THIS DOCUMENT WAS ELECTRONICALLY AUTHENTICATED BY Sandra Dudley MD ON 06/27/2013 16:58:29 documented in this encounter Plan of Treatment Not on file documented as of this encounter Visit Diagnoses Not on filedocumented in this encounter Care Teams Director Of Dementia Operations Relationship Specialty Start Date End Date Diego Dc MD PCP - General 06/02/14 documented as of this encounter
--- OUTSIDE RECORDS SUMMARY | 2025-07-07 20:25 | XMS_ITS | Clinical Summary ---
Author Organization Nichole Delgado [facility] Address [address] [place] [address] Care Team Providers Care Pin Cleaner Name Role Phone Diego Dc MD Primary Care Provider +1- [phone] Allergies Active Allergy Reactions Criticality Noted Date Comments Amoxicillin-Pot Clavulanate Other (See Comments) 06/18/2013 Nystatin Other (See Comments) 06/18/2013 Other Other (See Comments) 06/18/2013 Codeine Derivatives. Medications VALIUM 5 mg tablet TAKE 1 TABLET ONE HOUR PRIOR TO PROCEDURE. MAY REPEAT ONE TIME IF NEEDED. 07/05/2013 Active Text: Vitamin B12 TABS 06/18/2013 Active SYNTHROID 137 mcg tablet TAKE 1 TABLET DAILY DIRECTED. 06/18/2013 Active duloxetine (CYMBALTA) 60 MG capsule TAKE 2 CAPSULES AT BEDTIME. 06/18/2013 Active LAMICTAL XR 250 mg TR24 2 tab qd 06/18/2013 Active FLONASE 50 mcg/actuation nasal spray 06/18/2013 Active albuterol (VENTOLIN) 90 mcg/actuation inhaler 06/18/2013 Active cholecalciferol , vitamin D3, 2,000 unit Tab 06/18/2013 Acti ve Active Problems Problem Noted Date Diagnosed Date Lumbar spondylosis 01/15/2014 Overview (09/22/2014): Lumbar Spondylosis Hip pain 01/15/2014 Overview (09/22/2014): Joint Pain, Localized In The Hip Spondylolisthesis 01/15/2014 Overview (09/22/2014): Lumbar Spondylolisthesis Low back pain 01/15/2014 Overview (09/22/2014): Lower Back Pain Bursitis of hip 11/29/2013 Overview (09/22/2014): Bursitis Of The Left Hip Social History Tobacco Use Types Packs/Day Years Used Date Smoking Tobacco: Never Comments Unknown Sex and Gender Information Value Date Recorded Sex Assigned at Not on file Legal Sex Female 4:21 PM EST Gender Identity Not on file Sexual Orientation Not on file Last Filed Vital Signs Vital Sign Reading Time Taken Comments Blood Pressure 130/82 09/24/2013 3:50 PM EST Pulse 85 06/18/2013 9:12 AM EST Temperature - - Respiratory Rate 18 09/24/2013 3:50 PM EST Oxygen Saturation - - Inhaled Oxygen Concentration - - Weight 90.7 kg (200 lb) 09/24/2013 3:50 PM EST Height 157.5 cm (5' 2 ) 09/24/2013 3:50 PM EST Body Mass Index 36.58 09/24/2013 3:50 PM EST Plan of Treatment Not on file Care Teams Pin Cleaner Relationship Specialty Start Date End Date Diego Dc MD PCP - General 06/02/14
--- OUTSIDE RECORDS SUMMARY | 2025-07-07 20:25 | XMS_ITS | Clinical Summary ---
Author Organization [facility] Address [address] [facility] [address] [place] [address] Phone Care Team Providers Care Sports Administrator Name Role Phone Diego Dc MD Primary Care Provid er Allergies Active Allergy Reactions Criticality Noted Date Comments Amoxicillin-Pot Clavulanate Anaphylaxis High 019 Codeine Anaphylaxis High 05/26/2020 Nystatin Anaphylaxis,Swelling High 06/18/2013 Medications cholecalciferol (VITAMIN D3) 2,000 unit tablet 06/18/2013 Active montelukast (SINGULAIR) 10 mg tablet 03/01/2019 Active levothyroxine (SYNTHROID) 137 MCG tablet TAKE 1 TABLET DAILY DIRECTED. 06/18/2013 Active meloxicam (MOBIC) 7.5 MG tablet Take 7.5 mg by mouth 2 (two) times a day with meals. Active hydrOXYzine (ATARAX) 25 MG tablet Take 25 mg by mouth nightly at bedtime as needed for itching. Active levothyroxine (SYNTHROID, LEVOTHROID) 125 MCG tablet Take 125 mcg by mouth every morning. 07/06/2024 Active venlafaxine (EFFEXOR-XR) 37.5 MG 24 hr capsule Take 37.5 mg by mouth daily. 06/03/2022 Active pantoprazole (PROTONIX) 40 MG tablet Take 40 mg by mouth daily. 06/21/2022 Active metFORMIN (GLUCOPHAGE-XR) 500 MG 24 hr tablet Take 500 mg by mouth 2 (two) times a day (once in the morning and once in the afternoon). 06/07/2024 Active JARDIANCE 10 mg tablet Take 10 mg by mouth 2 (two) times a day (once in the morning and once in the afternoon). 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 90 tablet 3 01/29/2025 01/25/20 26 Active Active Problems Problem Noted Date Diagnosed Date Seizure 05/26/2020 Depression with anxiety 06/12/2019 NAHUM (obstructive sleep apnea) 04/17/2019 JULIANN (juvenile myoclonic epilepsy) 04/17/2019 Acquired hypothyroidism 04/17/2019 Episode of recurrent major depressive disorder 0 04/17/2019 Fibromyalgia 04/17/2019 Environmental and seasonal allergies 04/17/2019 Chronic midline low back pain with bilateral sci atica 04/17/2019 Primary osteoarthritis involving multiple joints 04/17/2019 Mild cognitive impairment 04/17/2019 Social History Tobacco Use Types Packs/Day Years [...] Orientation Straight 03/12/2019 2: 05 PM EDT Last Filed Vital Signs Vital Sign Reading Time Taken Comments Blood Pressure 109/68 05/30/2020 7:30 AM EST Pulse 75 05/30/2020 7:30 AM EST Temperature 36.5 C (97.7 F) 05/30/2020 7:30 AM EST Respiratory Rate 18 05/30/2020 7:30 AM EST Oxygen Saturation 92% 05/30/2020 7:30 AM EST Inhaled Oxygen Concentration - - Weight 110 kg (242 lb 8.1 oz) 05/28/2020 10:12 A M EST Height 157.5 cm (5' 2 ) 05/26/2020 10:43 AM EST Body Mass Index 44.35 05/26/2020 10:43 AM EST Plan of Treatment Health Maintenance Due Date Last Done Comments LIPID PANEL 1960 DEPRESSION SCREENING 1974 HEPATITIS C SCREENING 1980 HIV ONE-TIME SCREENING (18-65 YEARS) 1980 PAP SMEAR 1983 MAMMOGRAM 2002 COLOGUARD 2007 COLONOSCOPY 2007 COLORECTAL CANCER SCREENING 2007 FIT TEST 2007 FOBT 2007 SIGMOIDOSCOPY 2007 VIRTUAL COLONOSCOPY 2007 RSV VACCINE (1 - Risk 50-74 years 1-dose series) 2012 ZOSTER VACCINES (1 of 2) 2012 PNEUMOCOCCAL VACCINES (50+ years) (2 of 2 - PCV) 03/16/2017 03/16/2016, 04/28/2009 Adult Td,Tdap Booster 12/10/2017 12/11/2007 CREATININE LEVEL 11/25/2023 11/24/2022, , 05/26/2020 INFLUENZA VACCINE (#1) 2025 7, 03/16/2016, 04/28/2009, Additional history exists COVID-19 VACCINE (3 - 2024- season) 2025 09/13/2020, 08/23/2020 TSH LEVEL 08/02/2025 08/02/2024, 05/0 10/2022, 11/11/2022 SMOKING STATUS SCREENING (Once After 26 Yrs) Completed 08/02/2024 HEPATITIS A VACCINES Aged Out No long er eligible based on patient's age to complete this topic HIB VACCINES Aged Out No longer eligi ble based on patient's age to complete this topic MENINGOCOCCAL VACCINES (ACWY) Aged Out No longer eligible based on patient's age to complete this topic MENINGOCOCCAL VACCINES (B) Aged Out N o longer eligible based on patient's age to complete this topic Medical Devices Not on file Procedures Procedure Name Priority Date/Time Associated Diagnosis Comments TSH WITH REFLEX Routine 08/02/2024 11:33 AM EST 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 EXTERNALLY RESULTED CHEMISTRY Routine 11/24/2022 from Last 3 Months or Most Recently Relevant to Health Maintenance Results * TSH with reflex (08/02/2024 11:33 AM EST) Pathologist [facility] SCREENING PANEL: TSH 0.55 0.40 - 5.00 uIU/mL [facility] 08/02/2024 11:3 3 AM EST 08/02/2024 1:15 PM EST us Gena Garza MD, PhD LAB BLOOD BKR ORDERABLES Fin al Result [address] [address] * (ABNORMAL) EXTERNALLY RESULTED CHEMISTRY (11/24/2022) Pathologist [facility] Sodium - External 139 133 - 145 mmol/L Comment:Done at [facility] Potassium - External 4.8 3.6 - 5.2 mmol/L Comment:Done at [facility] Chloride - External 101 98 - 107 mmol/L Comment:Done at [facility] CO2 - External BUN - External 14 8 - 23 mg/dL Comment:Done at [facility] Creatinine, serum - External 0.7 0.5 - 1 mg/dL Comment:Done at [facility] BUN/Creatinine - External eGFR - External eGFR () - External Glucose - External 132(A) 70 - 99 mg/dL Comment:Done at [facility] Calcium - External 10 8.6 - 10.5 mg/dL Comment:Done at [facility] Phosphorus - External Magnesium - External Albumin - External 5.1(A) 3.4 - 4.8 gm/dL Comment:Done at [facility] Bilirubin, total - External 0.6 0 - 1.2 mg/dL Comment:Done at [facility] Bilirubin, direct - External Bilirubin (conjugated) - External Bilirubin, indirect - External Protein - External 7.3 6.2 - 8.2 gm/dL Comment:Done at [facility] Alkaline Phosphatase - External 117(A) 35 - 104 U/L Comment:Done at [facility] AST - External 21 0 - 32 U/L Comment:Done at [facility] ALT - External 35(A) 0 - 33 U/L Comment:Done at [facility] Amylase - External Lipase (u/L) - External Cholesterol, total - External LDL - External Triglycerides - External HDL - External TIBC - External Iron - External Ferritin - External Folate - External Vitamin B12 - External 491 232 - 1,245 pg/mL Comment:Done at [facility] CK - External Cotinine - External C-peptide (ng/mL) - External C-peptide (pmol/L) - External HCG, qualitative - External HCG, total - External NT-proBNP - External PTH - External TSH - External 0.22(A) 0.4 - 4.2 uIU/mL Comment:Done at [facility] T3 - External Total T4 - External Free T4 - External 1.68 0.70 - 1.80 ng/dL Comment:Done at [facility] Vitamin D 25(OH) - External AFP (Tumor Marker) - External Uric Acid - External PSA - External GGT - External Lactate, dehydrogenase - External Ammonia - External Vitamin A - External Alk phos: Intestinal Isoenzymes - External Alk phos: Bone Isoenzymes - External Alk phos: Liver Isoenzymes - External Alk phos: Placental Isoenzymes - External Alk phos: Macrohepatic Isoenzymes - External Cystatin C - External 11/24/2022 us Historical Provider LAB BLOOD ORDERABLES Alice l Result from Last 3 Months or Most Recently Relevant to Health Maintenance Insurance [address] [place] [address] [facility] [place] [address] [facility] [place] [address] [facility] [place] [address] [employer] [place] [address] [employer] [place] [address] [employer] OUT OF STATE [address] [place] [address] [employer] OUT OF STATE P[address] [place] [address] [employer] OUT OF STATE PPO [address] [place] [address] [employer] STATE PPO Advance Directives For more information, please contact: [phone] (9AM - 5PM [facility], Monday-Monday) * Full Code (Latest Code Status on File) Date Activated Date Inactivated Comments 05/26/2020 11:43 AM Question Answer Comments Code Status Confirmed With: Patient Care Teams Sports Administrator Relationship Specialty Start Date End Date Diego Dc MD [address] [place] [phone] PCP - General Pediatrics 03/12/19 Additional Source Comments The information contained in this document represents components of the legal health record. It is not the complete legal health record.[facility]
--- OUTSIDE RECORDS SUMMARY | 2025-07-07 20:25 | XMS_ITS | Encounter Summary ---
Author Organization Nichole Delgado [facility] Address [address] [place] [address] Care Team Providers Care Armored Car Guard And Driver Name Role Phone Diego Dc MD Primary Care Provider +1- [phone] Encounter Details Date Type Department Care Team (Late st Contact Info) Description 09/24/2013 Clinical Conversion Encounter Department of Neurosurgery [address] [place] [address] John Alfonso, WADE [address] [place] [address] Social History Tobacco Use Types Packs/Day Years Used Date Smoking Tobacco: Never Comments Unknown Sex and Gender Information Value Date Recorded Sex Assigned at Not on file Legal Sex Female 4:21 PM EST Gender Identity Not on file Sexual Orientation Not on file documented as of this encounter Progress Notes * John Alfonso NP - 09/17/2014 10:10 PM EST [id number],LAURIE [place], [place]. NEUROSURGERY 09/24/2013 Name: PATEL SUNNI Alejandro #: [id number] : 1960 Visit ID: [id number] Second Visit ID: [id number] HISTORY OF PRESENT ILLNESS: Sunni Sweeney returns to neurosurgery clinic today. She is a pleasant 53-year-old woman who was initially evaluated with Dr. Dudley with complaints of low back pain in May 2013. Ultimately, an MRI was completed demonstrating evidence of spondylosis with degenerative changes at several levels including facet arthropathy at L4-L5 and L5-S1 along with grade 1 degenerative listhesis at L4-L5. Based on the patient's chief complaint of low back pain and in addition to arthropathy findings on imaging study, facet block trial and radiofrequency ablation was advised. Ultimately, the patient underwent these procedures with Dr. Hartley in June 2013. She did experience improvement of low back pain. More recently, the patient has experienced progressive left hip pain. She also experiences discomfort in the left calf and foot and at times, the lateral thigh. Her hip, however, bothers her for most. She denies right-sided symptoms. She denies bowel/bladder changes or gait instability. She did not undergo physical therapy. Post-injection therapy has originally discussed. PHYSICAL EXAMINATION: Reveals a well-nourished and developed, well-appearing woman, in no apparent distress. Affect and mood appropriate. Alert and oriented x3. On examination, there is objective pain to palpation over the left hip joint. There is no obvious joint swelling or deformity. Internal and external rotation of the left hip do reproduce mild objective discomfort. Lower extremity motor strength is full bilaterally throughout. Light touch sensation is intact. Gait is symmetric and steady. IMPRESSION: 1. Left hip trochanteric bursitis. 2. L4-L5 spondylolisthesis, grade 1 degenerative. DISCUSSION: Imaging findings are discussed in detail with the patient. I have discussed with the patient her history and physical examination are consistent with left hip trochanteric bursitis. Given this as her chief complaint, a left hip bursa injection is advised. We have also advised the patient undergo a left L5 selective nerve root block based on her radicular left lower extremity symptoms. I discussed with the patient should the hip pain persist or worsen in the future, it would be prudent to obtain x-rays of the left hip and follow up with Orthopedics. In terms of the lower left extremity discomfort, this may arise from the mild narrowing at L4-L5 as a result of the degenerative changes seen at that level. Should pain persist or worsen into the future, a decompression could be advised. Hopefully, this will not be required. The patient does seem entirely satisfied with the discussion and plan. She will proceed with injection therapy as outlined and contact Neurosurgery into the future should further workup be required. John Alfonso RN BANDOLEER PACKER [phone] DM:bernie J: [id number] / [id number] CC: Diego Dc MD, <Primary Care Physician> THIS DOCUMENT WAS ELECTRONICALLY AUTHENTICATED BY John Alfonso RN BANDOLEER PACKER ON 10/02/2013 10:15:27 documented in this encounter Miscellaneous Notes * Telephone Encounter - John Alfonos NP - 09/18/2014 5:42 AM EST [id number],LAURIE [place] TELEPHONE MEMORANDUM NEUROSURGERY 10/22/2013 Name: SUNNI SWEENEY #: [id number] : 1960 Visit ID: [id number] I returned Sunni Sweeney's phone call today. For a comprehensive history of present illness, please refer to Dr. Dudley's and my dictations completed on 06/18/2013 and 09/24/2013. To summarize, the patient is a 53-year-old woman who has experienced progressive pain in bilateral hips as well as bilateral lower extremities. She underwent a lumbar MRI study demonstrating evidence of mild degenerative changes at L4-L5 and a grade 1 degenerative spondylolisthesis. The patient's examination was also notable for trochanteric bursitis. Ultimately, she was referred to Dr. Cesar Ricardo and underwent left L4-L5 transforaminal MELISSA as well as bursa injection on 10/05/2013. She did murdock 1 week of relief; however, her pain returned. Therefore, she contacts neurosurgery today for further discussion of potential treatment options. I discussed with the patient given the limited benefit from her recent spine injection and continued hip and leg pain, it would be reasonable to visit orthopedics for an evaluation of her hips to determine whether this is the primary source of her pain. She has not undergone hip x-rays to date. She would like to complete these at an outside facility. I have asked her to bring the films on disk to her orthopedic visit for that evaluation. After orthopedic evaluation, assessment and treatment, should pain persist or worsen, I would suggest the patient revisit Dr. Dudley for consideration of L4-L5 decompression. There is mild left foraminal stenosis bilaterally at that level. The patient does seem entirely satisfied with the discussion and plan of care. She will proceed to orthopedics as outlined and follow up with neurosurgery as needed into the future. John Alfonso RN BANDOLEER PACKER [phone] DM:bernie J: [id number] / [id number] CC: THIS DOCUMENT WAS ELECTRONICALLY AUTHENTICATED BY John Alfonso RN BANDOLEER PACKER ON 10/24/2013 11:31:30 documented in this encounter Plan of Treatment Not on file documented as of this encounter Visit Diagnoses Not on filedocumented in this encounter Care Teams Armored Car Guard And Driver Relationship Specialty Start Date End Date Diego Dc MD PCP - General 06/02/14 documented as of this encounter
== END 2025-07-07 15:46 | disposition home or self-care (01) ==
LOC: HO.HPHYS 14:00
PROVIDERS: PCP Internal Medicine; Visit Provider Physician Assistant
DX: M54.16 Radiculopathy, lumbar region (principal); M47.816 Spondylosis without myelopathy or radiculopathy, lumbar region
CPT/HCPCS: 99204